=== PATIENT | male | born 1955 | race Caucasian/White ===

== ENCOUNTER 2017-09-14 16:42 | Inpatient (IN) | payer MEDICAID ==
[~2017-09-14] VITALS: Ht 180.3 cm; Wt 121.0 kg
[~2017-09-14 16:42] MED LIST: ASPI81TA52 PO; ATOR10TA87 PO; CHOL10002 PO; EFF25T PO; FENO160T PO; FLUT1DIS4 INH; GLYB5TAB7 PO; INSU100V36 SQ; LANTUS SQ; LISI40TA4 PO; MAGN250T11 PO; METF10002 PO; METO25TA6 PO; NITR0.4T51 SL; OMEG1CAP2 PO; OMEP-50 PO; POTA99TA25 PO; SAXA5TAB PO; TICA90TA PO; TRIA1TAB5 PO; VITA150T PO
[2017-09-14] MEDS ORDERED: aspirin 81mg tab.chew PO ONE (16:50)
[2017-09-14] MEDS: nitroGLYCERIN 0.4mg SUBLingual tab SL PRN (16:58)
[2017-09-14] MEDS ORDERED: heparin 10,000 units/1 ML INJ IV ONE (17:15)
[2017-09-14] MEDS ORDERED: heparin 10,000 units/1 ML INJ IV PRN (17:15)
[2017-09-14 17:32] LABS: BASOPHILS # (AUTO) 0.1 X10'3 (0-0.2); BASOPHILS % (AUTO) 0.6 % (0-1); EOSINOPHILS % (AUTO) 0.1 % (0-6); HEMATOCRIT 42.6 % (42.0-52.0); HEMOGLOBIN 14.7 g/dl (14.0-17.9); LYMPHOCYTES # (AUTO) 1.1 X10'3 (1.1-4.8); LYMPHOCYTES % (AUTO) 10.8 % (21-51); MEAN CORPUSCULAR HEMOGLOBIN 31.2 PG (27.0-31.0); MEAN CORPUSCULAR HGB CONC 34.6 % (33.0-36.5); MEAN CORPUSCULAR VOLUME 90.3 FL (78-98); MEAN PLATELET VOLUME 8.8 FL (7.4-10.4); MONOCYTES # (AUTO) 0.7 X10'3 (0-0.9); MONOCYTES % (AUTO) 6.9 % (2-12); NEUTROPHILS # (AUTO) 8.6 X10'3 (1.8-7.7); NEUTROPHILS % (AUTO) 81.6 % (42-75); PLATELET COUNT 214 X10'3 (140-440); RED BLOOD COUNT 4.72 X10'6 (4.70-6.10); RED CELL DISTRIBUTION WIDTH 13.2 % (11.5-14.5); WHITE BLOOD COUNT 10.5 X10'3 (4.5-11.0)
[2017-09-14] MEDS ORDERED: LANTUS SQ (17:34)
[2017-09-14] MEDS ORDERED: DULO-31 PO (17:34)
[2017-09-14] MEDS ORDERED: FURO-150 PO (17:34)
[2017-09-14] MEDS ORDERED: GABA-530 PO ×2 (17:34)
[2017-09-14] MEDS ORDERED: CARV-50 PO (17:34)
[2017-09-14] MEDS ORDERED: ATOR40TA PO (17:34)
[2017-09-14] MEDS ORDERED: PRAZ5CAP PO (17:34)
[2017-09-14] MEDS ORDERED: POTA10TA19 PO (17:34)
[2017-09-14] MEDS ORDERED: LEVO750T21 PO (17:36)
[2017-09-14 17:46] LABS: PARTIAL THROMBOPLASTIN TIME 41 SECONDS (22-32); PROTHROMBIN TIME 10.7 SECONDS (9.0-12.0)
[2017-09-14] MEDS ORDERED: venlafaxine 37.5mg tablet PO PRN (17:50)
[2017-09-14 17:52] LABS: ALANINE AMINOTRANSFERASE 26 U/L (12-78); ALBUMIN 2.6 G/DL (3.4-5.0); ALBUMIN/GLOBULIN RATIO 0.8 (1.1-1.5); ALKALINE PHOSPHATASE 64 IU/L (46-116); ANION GAP 11 (8-16); ASPARTATE AMINO TRANSFERASE 51 U/L (10-37); BILIRUBIN,TOTAL 0.9 MG/DL (0.1-1.0); BLOOD UREA NITROGEN 17 MG/DL (7-18); BUN/CREATININE RATIO 17.5 (5.4-32.0); CHLORIDE 107 MMOL/L (99-107); CREATININE 0.97 MG/DL (0.60-1.10); GLUCOSE 253 MG/DL (70-104); POTASSIUM 3.9 MMOL/L (3.5-5.1); SODIUM 142 MMOL/L (135-145); TOTAL CARBON DIOXIDE 23.6 MMOL/L (24-32); TOTAL PROTEIN 5.9 G/DL (6.4-8.2); eGFR 79 ML/MIN
[2017-09-14] MEDS: normal saline 1000ml 1,000 ML IV SCH (17:53)
[2017-09-14] MEDS ORDERED: nitroGLYCERIN-Tridil 50MG/D5W 250 ML IV PRN (17:53)
[2017-09-14] MEDS ORDERED: diphenhydrAMINE 25mg capsule PO PRN (17:55)
[2017-09-14] MEDS ORDERED: diphenhydrAMINE 50 mg/ml inj IV PRN (17:55)
[2017-09-14] MEDS ORDERED: mag hydrox/Alum hydrox/simeth 30ml oral suspension PO PRN (17:55)
[2017-09-14] MEDS ORDERED: acetaminophen 650mg rectal suppository RC PRN (17:55)
[2017-09-14] MEDS ORDERED: ondansetron/PF 4mg/2ml inj IV PRN (17:55)
[2017-09-14] MEDS ORDERED: magnesium hydroxide 30ml (MOM) UD suspension PO PRN (17:55)
[2017-09-14] MEDS ORDERED: HYDROmorphone inj. 0.5 MG/0.5 ML DISP.SYRIN IV PRN ×2 (17:55)
[2017-09-14] MEDS ORDERED: normal saline 1000ML IV soln IVB ONE (17:55)
[2017-09-14] MEDS ORDERED: morphine 5 MG/ML injection IV PRN (17:55)
[2017-09-14] MEDS ORDERED: morphine 2 MG/ML inj. syringe IV ONE (17:55)
[2017-09-14] MEDS ORDERED: acetaminophen 325mg tablet PO PRN (17:55)
[2017-09-14] MEDS ORDERED: metoclopramide 5 mg/ml inj IV PRN (17:55)
[2017-09-14] MEDS: morphine 5 MG/ML injection IV PRN (18:33)
[2017-09-14] MEDS ORDERED: iohexol 350MG/ML 100ml bottle IV ONE (18:53)
[2017-09-14 19:00] VITALS: BP 115/71
[2017-09-14] MEDS ORDERED: MESSAGE TO PHARMACY PO ONE (19:00)
[2017-09-14] MEDS ORDERED: glucagon, human recombinant 1mg kit SUBCUT PRN (19:00)
[2017-09-14] MEDS ORDERED: dextrose 50%-water 50ml dispensing syringe IV PRN ×2 (19:00)
[2017-09-14] MEDS ORDERED: dextrose ORAL solution 15 GM/59 ML bottle PO PRN ×2 (19:00)
[2017-09-14 19:07] LABS: CLARITY,URINE CLEAR (Clear); COLOR,URINE YELLOW (Yellow); GLUCOSE, URINE >=1000 mg/dl (Neg); KETONES,URINE NEGATIVE (Neg); LEUKOCYTE ESTERASE ,URINE NEGATIVE (Neg); NITRITES, URINE NEGATIVE (Neg); OCCULT BLOOD,URINE NEGATIVE (Neg); PH,URINE 5.5 (4.8-8.0); PROTEIN,URINE NEGATIVE (Neg)
[2017-09-14 19:09] LABS: UA COLLECTION TYPE CLN CATCH MIDSTREAM
[2017-09-14 19:16] LABS: BACTERIA,URINE NONE SEEN /HPF (Neg); MUCUS STRANDS FEW /LPF (Neg); RBC,URINE NONE SEEN /HPF (0-2); SQUAMOUS EPITHELIAL CELL,UR FEW /LPF (FEW); WBC,URINE 0-4 /HPF (0-4)
[2017-09-14] MEDS ORDERED: ticagrelor 90mg tablet PO SCH (20:00)
[2017-09-14] MEDS ORDERED: methylPREDNISolone sod succ 125mg/2ml vial IV ONE (20:00)
[2017-09-14] MEDS: glimepiride 1 MG tablet PO SCH (20:00)
[2017-09-14 20:39] LABS: MAGNESIUM 1.5 MG/DL (1.5-2.4)
[2017-09-14 20:42] LABS: HEMOGLOBIN A1C 7.9 % (4.5-6.2)
[2017-09-14] MEDS: prazosin 1mg capsule PO SCH (21:00)
[2017-09-14] MEDS ORDERED: temazepam 15mg capsule PO PRN (21:00)
[2017-09-14] MEDS ORDERED: nitroGLYCERIN-Tridil 50MG/D5W 250 ML IV SCH (21:05)
[2017-09-14] MEDS: gabapentin 100mg capsule PO SCH (21:50)
[2017-09-14] MEDS: docusate sod 100mg capsule PO SCH (21:50)
[2017-09-14] MEDS: azithromycin 250mg tablet PO SCH (21:51)
[2017-09-14] MEDS: carVEDilol 12.5mg tablet PO SCH (21:51)
[2017-09-14 23:00] VITALS: BP 116/76
[2017-09-15] VITALS (16 sets, daily range): BP systolic 98–131; BP diastolic 53–81
[2017-09-15] MEDS: tirofiban 5mg in NS 100mL 100 ML IV SCH ×5 (00:33→19:35)
[2017-09-15] MEDS: heparin 10,000 units/1 ML INJ IV PRN ×2 (00:55→07:54)
[2017-09-15] MEDS: normal saline 1000ml 1,000 ML IV SCH ×3 (03:53→16:11)
[2017-09-15] MEDS: morphine 5 MG/ML injection IV PRN (05:14)
[2017-09-15 05:28] LABS: BASOPHILS % (AUTO) 0 % (0-1); EOSINOPHILS # (AUTO) 0.1 X10'3 (0-0.9); EOSINOPHILS % (AUTO) 0.7 % (0-6); HEMATOCRIT 39.5 % (42.0-52.0); HEMOGLOBIN 14.1 g/dl (14.0-17.9); LYMPHOCYTES # (AUTO) 0.6 X10'3 (1.1-4.8); LYMPHOCYTES % (AUTO) 6.1 % (21-51); MEAN CORPUSCULAR HEMOGLOBIN 31.7 PG (27.0-31.0); MEAN CORPUSCULAR HGB CONC 35.6 % (33.0-36.5); MEAN CORPUSCULAR VOLUME 88.8 FL (78-98); MEAN PLATELET VOLUME 8.1 FL (7.4-10.4); MONOCYTES # (AUTO) 0.1 X10'3 (0-0.9); MONOCYTES % (AUTO) 1.3 % (2-12); NEUTROPHILS # (AUTO) 9.8 X10'3 (1.8-7.7); NEUTROPHILS % (AUTO) 91.9 % (42-75); PLATELET COUNT 253 X10'3 (140-440); RED BLOOD COUNT 4.45 X10'6 (4.70-6.10); RED CELL DISTRIBUTION WIDTH 13.3 % (11.5-14.5); WHITE BLOOD COUNT 10.6 X10'3 (4.5-11.0)
[2017-09-15 05:50] LABS: ALANINE AMINOTRANSFERASE 28 U/L (12-78); ALBUMIN 2.5 G/DL (3.4-5.0); ALBUMIN/GLOBULIN RATIO 0.8 (1.1-1.5); ALKALINE PHOSPHATASE 60 IU/L (46-116); ANION GAP 12 (8-16); ASPARTATE AMINO TRANSFERASE 45 U/L (10-37); BLOOD UREA NITROGEN 23 MG/DL (7-18); BUN/CREATININE RATIO 23.5 (5.4-32.0); CALCIUM 8.3 MG/DL (8.5-10.1); CHLORIDE 104 MMOL/L (99-107); CREATININE 0.98 MG/DL (0.60-1.10); GLUCOSE 291 MG/DL (70-104); POTASSIUM 4.2 MMOL/L (3.5-5.1); SODIUM 139 MMOL/L (135-145); TOTAL CARBON DIOXIDE 22.8 MMOL/L (24-32); TOTAL PROTEIN 5.8 G/DL (6.4-8.2); eGFR 78 ML/MIN
[2017-09-15] MEDS: azithromycin 250mg tablet PO SCH ×2 (07:51→19:21)
[2017-09-15] MEDS: duloxetine 30mg CAPSULE.DR PO SCH (07:51)
[2017-09-15] MEDS: aspirin 81mg tablet.DR PO SCH (07:51)
[2017-09-15] MEDS: docusate sod 100mg capsule PO SCH ×2 (07:51→19:21)
[2017-09-15] MEDS: fenofibrate 145mg tablet PO SCH (07:51)
[2017-09-15] MEDS: carVEDilol 12.5mg tablet PO SCH ×2 (07:52→19:21)
[2017-09-15] MEDS: pantoprazole 40mg Tablet.DR PO SCH (07:52)
[2017-09-15] MEDS: gabapentin 100mg capsule PO SCH ×2 (07:52→21:01)
[2017-09-15] MEDS: atorvastatin 20mg tablet PO SCH (07:57)
[2017-09-15] MEDS ORDERED: CefTRIAXone 1 gm/50ml D5W ADV 50 ML IV SCH (08:00)
[2017-09-15] MEDS: glimepiride 1 MG tablet PO SCH (08:00)
[2017-09-15] MEDS: insulin Lispro (HumaLOG) vial - multi-dose SQ SCH ×3 (08:12→19:29)
[2017-09-15 08:48] LABS: CHOL/HDL RATIO 4.4 (0.00-4.99); CHOLESTEROL 127 MG/DL (0-200); HDL CHOLESTEROL 29 MG/DL (35-60); LDL CHOLESTEROL 83 MG/DL (50-100); TRIGLYCERIDES 123 MG/DL (20-135)
[2017-09-15] MEDS: [UNRECOGNIZED DRUG - REMARK] PO NR (10:13)
[2017-09-15] MEDS ORDERED: CARV-50 (10:25)
[2017-09-15] MEDS ORDERED: LIDOcaine 1%/PF (10mg/ml) 5ml vial ONE (11:59)
[2017-09-15] MEDS ORDERED: fentaNYL/PF 50MCG/1 ML 2ML syringe ONE (11:59)
[2017-09-15] MEDS ORDERED: midazolam 2 mg/2 ml injection ONE (11:59)
[2017-09-15] MEDS ORDERED: iohexol 350MG/ML 100ml bottle IV ONE ×2 (12:00→12:55)
[2017-09-15] MEDS ORDERED: heparin 1,000unit/ml 10ml vial 0 ML ONE (13:06)
[2017-09-15] MEDS ORDERED: proCHLORperazine 10 MG/2 ml inj IV PRN (14:55)
[2017-09-15] MEDS ORDERED: OXAZEpam 15mg capsule PO PRN (14:55)
[2017-09-15] MEDS: HYDROcodone/acetaminophen 10/325mg tab PO PRN (15:25)
[2017-09-15] MEDS ORDERED: morphine 4 MG/ML inj SYRINge IV PRN ×2 (20:47)
[2017-09-15] MEDS: prazosin 1mg capsule PO SCH (21:02)
[2017-09-15] MEDS ORDERED: LORazepam 2 mg/ml vial IV ONE (22:00)
[2017-09-15 23:41] LABS: BASOPHILS # (AUTO) 0.1 X10'3 (0-0.2); EOSINOPHILS % (AUTO) 0 % (0-6); HEMATOCRIT 36.5 % (42.0-52.0); HEMOGLOBIN 12.9 g/dl (14.0-17.9); LYMPHOCYTES # (AUTO) 0.9 X10'3 (1.1-4.8); LYMPHOCYTES % (AUTO) 7.3 % (21-51); MEAN CORPUSCULAR HEMOGLOBIN 31.3 PG (27.0-31.0); MEAN CORPUSCULAR HGB CONC 35.5 % (33.0-36.5); MEAN CORPUSCULAR VOLUME 88.2 FL (78-98); MEAN PLATELET VOLUME 8.1 FL (7.4-10.4); MONOCYTES # (AUTO) 0.9 X10'3 (0-0.9); MONOCYTES % (AUTO) 7.2 % (2-12); NEUTROPHILS # (AUTO) 10.9 X10'3 (1.8-7.7); NEUTROPHILS % (AUTO) 84.5 % (42-75); PLATELET COUNT 275 X10'3 (140-440); RED BLOOD COUNT 4.13 X10'6 (4.70-6.10); RED CELL DISTRIBUTION WIDTH 13.1 % (11.5-14.5); WHITE BLOOD COUNT 12.9 X10'3 (4.5-11.0)
[2017-09-16] VITALS (12 sets, daily range): BP systolic 120–171; BP diastolic 48–116
[2017-09-16 05:55] LABS: BASOPHILS % (AUTO) 0.3 % (0-1); EOSINOPHILS # (AUTO) 0.1 X10'3 (0-0.9); EOSINOPHILS % (AUTO) 1.3 % (0-6); HEMATOCRIT 35.4 % (42.0-52.0); HEMOGLOBIN 12.4 g/dl (14.0-17.9); LYMPHOCYTES # (AUTO) 1.1 X10'3 (1.1-4.8); LYMPHOCYTES % (AUTO) 10.4 % (21-51); MEAN CORPUSCULAR HEMOGLOBIN 31.7 PG (27.0-31.0); MEAN CORPUSCULAR HGB CONC 35.2 % (33.0-36.5); MEAN PLATELET VOLUME 8.2 FL (7.4-10.4); MONOCYTES # (AUTO) 0.8 X10'3 (0-0.9); MONOCYTES % (AUTO) 7.8 % (2-12); NEUTROPHILS # (AUTO) 8.5 X10'3 (1.8-7.7); NEUTROPHILS % (AUTO) 80.2 % (42-75); PLATELET COUNT 242 X10'3 (140-440); RED BLOOD COUNT 3.93 X10'6 (4.70-6.10); RED CELL DISTRIBUTION WIDTH 13.3 % (11.5-14.5); WHITE BLOOD COUNT 10.6 X10'3 (4.5-11.0)
[2017-09-16 06:04] LABS: ALANINE AMINOTRANSFERASE 26 U/L (12-78); ALBUMIN 2.3 G/DL (3.4-5.0); ALBUMIN/GLOBULIN RATIO 0.7 (1.1-1.5); ALKALINE PHOSPHATASE 54 IU/L (46-116); ANION GAP 12 (8-16); ASPARTATE AMINO TRANSFERASE 32 U/L (10-37); BILIRUBIN,TOTAL 0.7 MG/DL (0.1-1.0); BLOOD UREA NITROGEN 27 MG/DL (7-18); BUN/CREATININE RATIO 28.1 (5.4-32.0); CALCIUM 8.1 MG/DL (8.5-10.1); CHLORIDE 104 MMOL/L (99-107); CREATININE 0.96 MG/DL (0.60-1.10); GLUCOSE 256 MG/DL (70-104); POTASSIUM 3.7 MMOL/L (3.5-5.1); SODIUM 140 MMOL/L (135-145); TOTAL PROTEIN 5.5 G/DL (6.4-8.2); eGFR 80 ML/MIN
[2017-09-16] MEDS ORDERED: potassium Cl 20 mEq SR tablet PO STA (06:34)
[2017-09-16] MEDS ORDERED: furosemide 40mg/4ml inj IV ONE ×2 (06:35→20:40)
[2017-09-16] MEDS: atorvastatin 20mg tablet PO SCH (07:56)
[2017-09-16] MEDS: duloxetine 30mg CAPSULE.DR PO SCH (07:57)
[2017-09-16] MEDS: azithromycin 250mg tablet PO SCH ×2 (07:57→21:22)
[2017-09-16] MEDS: aspirin 81mg tablet.DR PO SCH (07:58)
[2017-09-16] MEDS: losartan 25mg tablet PO SCH (07:58)
[2017-09-16] MEDS: fenofibrate 145mg tablet PO SCH (07:58)
[2017-09-16] MEDS: docusate sod 100mg capsule PO SCH ×2 (07:58→21:22)
[2017-09-16] MEDS: gabapentin 100mg capsule PO SCH ×2 (07:58→21:25)
[2017-09-16] MEDS: pantoprazole 40mg Tablet.DR PO SCH (07:58)
[2017-09-16] MEDS: isosorbide mononitrate 30mg tab.SR.24H PO SCH (07:59)
[2017-09-16] MEDS: carVEDilol 12.5mg tablet PO SCH ×2 (07:59→21:25)
[2017-09-16] MEDS: nitroGLYCERIN 0.4mg SUBLingual tab SL PRN (08:02)
[2017-09-16] MEDS: cefTRIAXone 1g/NS 100ml IVPB 100 ML IV SCH (08:05)
[2017-09-16] MEDS: insulin Lispro (HumaLOG) vial - multi-dose SQ SCH ×2 (08:53→21:37)
[2017-09-16] MEDS ORDERED: furosemide 40mg/4ml inj ONE (09:09)
[2017-09-16] MEDS ORDERED: furosemide 20 MG/2 ML vial IV STA (09:13)
[2017-09-16] MEDS ORDERED: metoprolol tartrate 1mg/ml inj IV ONE ×3 (09:15→14:25)
[2017-09-16 09:21] LABS: ABG BASE EXCESS -1.2 mmol/L (-2.0-3.0); ABG HCO3 21.7 mmol/L (22.0-26.0); ABG PH (T) 7.462 (7.350-7.450); ABG PO2 (T) 70.8 mmHg (83-108); ALLEN'S TEST Positive; FCOHb 0.3 % (0.5-1.5); FLOW 4 L/min; FMetHb 0.3 % (0.3-1.12); FO2Hb 94.4 % (94-100); TOTAL HEMOGLOBIN 13.9 G/dl (14.0-18.0)
[2017-09-16 09:23] LABS: BASOPHILS # (AUTO) 0.1 X10'3 (0-0.2); BASOPHILS % (AUTO) 1.1 % (0-1); EOSINOPHILS # (AUTO) 0.1 X10'3 (0-0.9); EOSINOPHILS % (AUTO) 0.7 % (0-6); HEMATOCRIT 37.5 % (42.0-52.0); HEMOGLOBIN 13.4 g/dl (14.0-17.9); LYMPHOCYTES # (AUTO) 0.8 X10'3 (1.1-4.8); LYMPHOCYTES % (AUTO) 7.1 % (21-51); MEAN CORPUSCULAR HEMOGLOBIN 31.9 PG (27.0-31.0); MEAN CORPUSCULAR HGB CONC 35.9 % (33.0-36.5); MEAN CORPUSCULAR VOLUME 88.8 FL (78-98); MEAN PLATELET VOLUME 7.6 FL (7.4-10.4); MONOCYTES # (AUTO) 0.8 X10'3 (0-0.9); NEUTROPHILS # (AUTO) 9.7 X10'3 (1.8-7.7); NEUTROPHILS % (AUTO) 84.1 % (42-75); PLATELET COUNT 269 X10'3 (140-440); RED BLOOD COUNT 4.22 X10'6 (4.70-6.10); RED CELL DISTRIBUTION WIDTH 13.1 % (11.5-14.5); WHITE BLOOD COUNT 11.6 X10'3 (4.5-11.0)
[2017-09-16 09:34] LABS: PROTHROMBIN TIME 10.5 SECONDS (9.0-12.0)
[2017-09-16 09:42] LABS: ALANINE AMINOTRANSFERASE 21 U/L (12-78); ALBUMIN 2.6 G/DL (3.4-5.0); ALBUMIN/GLOBULIN RATIO 0.7 (1.1-1.5); ALKALINE PHOSPHATASE 63 IU/L (46-116); ANION GAP 13 (8-16); ASPARTATE AMINO TRANSFERASE 33 U/L (10-37); BILIRUBIN,TOTAL 0.8 MG/DL (0.1-1.0); BLOOD UREA NITROGEN 22 MG/DL (7-18); BUN/CREATININE RATIO 24.2 (5.4-32.0); CALCIUM 8.2 MG/DL (8.5-10.1); CHLORIDE 103 MMOL/L (99-107); CREATININE 0.91 MG/DL (0.60-1.10); GLUCOSE 261 MG/DL (70-104); POTASSIUM 3.6 MMOL/L (3.5-5.1); SODIUM 140 MMOL/L (135-145); TOTAL CARBON DIOXIDE 23.7 MMOL/L (24-32); TOTAL PROTEIN 6.3 G/DL (6.4-8.2); eGFR 85 ML/MIN
[2017-09-16 09:44] LABS: TROPONIN I 5.73 NG/ML (0.0-0.05)
[2017-09-16] MEDS: normal saline 1000ml 1,000 ML IV SCH (09:53)
[2017-09-16] MEDS: [UNRECOGNIZED DRUG - REMARK] PO NR (10:00)
[2017-09-16] MEDS ORDERED: amiodarone 150mg/dext, iso-os 100 ML IV ONE (15:15)
[2017-09-16] MEDS: amiodarone/D5 360MG/200ML BAG 200 ML IV SCH ×2 (16:46→22:47)
[2017-09-16] MEDS: lactobacillus rhamnosus 10,000 MMU CELLS/CAPSULE PO SCH (16:51)
[2017-09-16] MEDS ORDERED: albuterol 2.5 MG/3 ML nebule NEB PRN (20:40)
[2017-09-16] MEDS: prazosin 1mg capsule PO SCH (21:22)
[2017-09-17 05:30] VITALS: BP 121/72
[2017-09-17 05:58] LABS: BASOPHILS % (AUTO) 0.1 % (0-1); EOSINOPHILS # (AUTO) 0.2 X10'3 (0-0.9); EOSINOPHILS % (AUTO) 1.7 % (0-6); HEMATOCRIT 36.8 % (42.0-52.0); HEMOGLOBIN 13.1 g/dl (14.0-17.9); LYMPHOCYTES # (AUTO) 1.2 X10'3 (1.1-4.8); LYMPHOCYTES % (AUTO) 13.7 % (21-51); MEAN CORPUSCULAR HEMOGLOBIN 31.7 PG (27.0-31.0); MEAN CORPUSCULAR HGB CONC 35.5 % (33.0-36.5); MEAN CORPUSCULAR VOLUME 89.4 FL (78-98); MONOCYTES # (AUTO) 0.9 X10'3 (0-0.9); MONOCYTES % (AUTO) 9.8 % (2-12); NEUTROPHILS # (AUTO) 6.7 X10'3 (1.8-7.7); NEUTROPHILS % (AUTO) 74.7 % (42-75); PLATELET COUNT 247 X10'3 (140-440); RED BLOOD COUNT 4.12 X10'6 (4.70-6.10); RED CELL DISTRIBUTION WIDTH 12.8 % (11.5-14.5); WHITE BLOOD COUNT 8.9 X10'3 (4.5-11.0)
[2017-09-17 06:38] LABS: ALANINE AMINOTRANSFERASE 27 U/L (12-78); ALBUMIN 2.4 G/DL (3.4-5.0); ALBUMIN/GLOBULIN RATIO 0.7 (1.1-1.5); ALKALINE PHOSPHATASE 58 IU/L (46-116); ANION GAP 10 (8-16); ASPARTATE AMINO TRANSFERASE 35 U/L (10-37); BILIRUBIN,TOTAL 0.7 MG/DL (0.1-1.0); BLOOD UREA NITROGEN 21 MG/DL (7-18); BUN/CREATININE RATIO 22.3 (5.4-32.0); CALCIUM 8.2 MG/DL (8.5-10.1); CHLORIDE 104 MMOL/L (99-107); CREATININE 0.94 MG/DL (0.60-1.10); GLUCOSE 251 MG/DL (70-104); POTASSIUM 3.3 MMOL/L (3.5-5.1); SODIUM 142 MMOL/L (135-145); TOTAL CARBON DIOXIDE 27.6 MMOL/L (24-32); TOTAL PROTEIN 5.9 G/DL (6.4-8.2); eGFR 82 ML/MIN
[2017-09-17] MEDS ORDERED: potassium Cl 20 mEq SR tablet PO STA (07:38)
[2017-09-17] MEDS ORDERED: potassium Cl 20 mEq SR tablet PO PRN ×2 (07:40)
[2017-09-17] MEDS ORDERED: potassium Cl 40MEQ/NS 500ml 500 ML IV PRN ×2 (07:40)
[2017-09-17] MEDS ORDERED: magnesium Cl slow-release 64mg tablet PO PRN (07:40)
[2017-09-17] MEDS: amiodarone 200mg tablet PO SCH ×3 (08:00→19:52)
[2017-09-17] MEDS: lactobacillus rhamnosus 10,000 MMU CELLS/CAPSULE PO SCH ×2 (09:28→17:24)
[2017-09-17] MEDS: pantoprazole 40mg Tablet.DR PO SCH (09:29)
[2017-09-17] MEDS: docusate sod 100mg capsule PO SCH ×2 (09:29→19:52)
[2017-09-17] MEDS: fenofibrate 145mg tablet PO SCH (09:29)
[2017-09-17] MEDS: losartan 25mg tablet PO SCH (09:29)
[2017-09-17] MEDS: carVEDilol 12.5mg tablet PO SCH ×2 (09:30→19:53)
[2017-09-17] MEDS: aspirin 81mg tablet.DR PO SCH (09:30)
[2017-09-17] MEDS: azithromycin 250mg tablet PO SCH ×2 (09:30→19:53)
[2017-09-17] MEDS: gabapentin 100mg capsule PO SCH ×2 (09:30→21:50)
[2017-09-17] MEDS: duloxetine 30mg CAPSULE.DR PO SCH (09:30)
[2017-09-17] MEDS: atorvastatin 20mg tablet PO SCH (09:30)
[2017-09-17] MEDS: isosorbide mononitrate 30mg tab.SR.24H PO SCH (09:30)
[2017-09-17] MEDS: insulin Lispro (HumaLOG) vial - multi-dose SQ SCH ×3 (09:39→18:55)
[2017-09-17] MEDS: cefTRIAXone 1g/NS 100ml IVPB 100 ML IV SCH (10:27)
[2017-09-17 11:00] VITALS: BP 132/79
[2017-09-17] MEDS: HYDROcodone/acetaminophen 5mg/325mg tablet PO PRN ×2 (13:28→22:04)
[2017-09-17 15:00] VITALS: BP 113/72
[2017-09-17 19:00] VITALS: BP 137/90
[2017-09-17] MEDS: prazosin 1mg capsule PO SCH (21:50)
[2017-09-17] MEDS: insulin glargine (Lantus) pen - multi-dose SQ SCH (21:55)
[2017-09-17 23:00] VITALS: BP 119/78
[2017-09-18 03:00] VITALS: BP 108/65
[2017-09-18 06:00] VITALS: BP 127/85
[2017-09-18 06:31] LABS: BASOPHILS # (AUTO) 0.1 X10'3 (0-0.2); BASOPHILS % (AUTO) 0.8 % (0-1); EOSINOPHILS # (AUTO) 0.3 X10'3 (0-0.9); EOSINOPHILS % (AUTO) 3.7 % (0-6); HEMATOCRIT 36.7 % (42.0-52.0); HEMOGLOBIN 12.9 g/dl (14.0-17.9); LYMPHOCYTES # (AUTO) 1.3 X10'3 (1.1-4.8); LYMPHOCYTES % (AUTO) 16.3 % (21-51); MEAN CORPUSCULAR HEMOGLOBIN 31.3 PG (27.0-31.0); MEAN CORPUSCULAR HGB CONC 35.1 % (33.0-36.5); MEAN CORPUSCULAR VOLUME 89.3 FL (78-98); MONOCYTES # (AUTO) 0.7 X10'3 (0-0.9); MONOCYTES % (AUTO) 9.4 % (2-12); NEUTROPHILS # (AUTO) 5.4 X10'3 (1.8-7.7); NEUTROPHILS % (AUTO) 69.8 % (42-75); PLATELET COUNT 265 X10'3 (140-440); RED BLOOD COUNT 4.11 X10'6 (4.70-6.10); RED CELL DISTRIBUTION WIDTH 13.1 % (11.5-14.5); WHITE BLOOD COUNT 7.8 X10'3 (4.5-11.0)
[2017-09-18 06:48] LABS: ALANINE AMINOTRANSFERASE 35 U/L (12-78); ALBUMIN 2.3 G/DL (3.4-5.0); ALBUMIN/GLOBULIN RATIO 0.7 (1.1-1.5); ALKALINE PHOSPHATASE 56 IU/L (46-116); ANION GAP 12 (8-16); ASPARTATE AMINO TRANSFERASE 32 U/L (10-37); BILIRUBIN,TOTAL 0.7 MG/DL (0.1-1.0); BLOOD UREA NITROGEN 26 MG/DL (7-18); BUN/CREATININE RATIO 25.2 (5.4-32.0); CALCIUM 8.4 MG/DL (8.5-10.1); CHLORIDE 106 MMOL/L (99-107); CREATININE 1.03 MG/DL (0.60-1.10); GLUCOSE 206 MG/DL (70-104); MAGNESIUM 1.8 MG/DL (1.5-2.4); POTASSIUM 3.8 MMOL/L (3.5-5.1); SODIUM 143 MMOL/L (135-145); TOTAL CARBON DIOXIDE 25.5 MMOL/L (24-32); TOTAL PROTEIN 5.7 G/DL (6.4-8.2); eGFR 74 ML/MIN
[2017-09-18] MEDS: cefTRIAXone 1g/NS 100ml IVPB 100 ML IV SCH (08:51)
[2017-09-18] MEDS: HYDROcodone/acetaminophen 10/325mg tab PO PRN ×2 (09:00→20:37)
[2017-09-18] MEDS: azithromycin 250mg tablet PO SCH ×2 (09:00→20:38)
[2017-09-18] MEDS: isosorbide mononitrate 30mg tab.SR.24H PO SCH (09:01)
[2017-09-18] MEDS: lactobacillus rhamnosus 10,000 MMU CELLS/CAPSULE PO SCH ×2 (09:01→17:40)
[2017-09-18] MEDS: amiodarone 200mg tablet PO SCH ×2 (09:01→20:38)
[2017-09-18] MEDS: atorvastatin 20mg tablet PO SCH (09:01)
[2017-09-18] MEDS: gabapentin 100mg capsule PO SCH ×2 (09:01→20:37)
[2017-09-18] MEDS: docusate sod 100mg capsule PO SCH ×2 (09:01→20:38)
[2017-09-18] MEDS: losartan 25mg tablet PO SCH (09:01)
[2017-09-18] MEDS: duloxetine 30mg CAPSULE.DR PO SCH (09:01)
[2017-09-18] MEDS: aspirin 81mg tablet.DR PO SCH (09:01)
[2017-09-18] MEDS: fenofibrate 145mg tablet PO SCH (09:01)
[2017-09-18] MEDS: carVEDilol 12.5mg tablet PO SCH ×2 (09:01→20:38)
[2017-09-18] MEDS: pantoprazole 40mg Tablet.DR PO SCH (09:02)
[2017-09-18] MEDS: insulin Lispro (HumaLOG) vial - multi-dose SQ SCH ×3 (09:09→18:56)
[2017-09-18 11:00] VITALS: BP 108/71
[2017-09-18 14:15] LABS: RHEUM FACTOR QUAL REFLEX TITER NEGATIVE (Neg)
[2017-09-18 15:00] VITALS: BP 103/68
[2017-09-18 15:02] LABS: CRP-CARDIAC RISK > 90.000 MG/L
[2017-09-18 19:00] VITALS: BP 125/69
[2017-09-18] MEDS: prazosin 1mg capsule PO SCH (20:38)
[2017-09-18] MEDS: insulin glargine (Lantus) pen - multi-dose SQ SCH (20:50)
[2017-09-18] MEDS ORDERED: insulin glargine (Lantus) pen - multi-dose SQ SCH (21:00)
[2017-09-18 23:00] VITALS: BP 105/66
[2017-09-19 03:00] VITALS: BP 124/76
[2017-09-19 06:00] VITALS: BP 130/82
[2017-09-19 07:27] LABS: BASOPHILS # (AUTO) 0.2 X10'3 (0-0.2); EOSINOPHILS # (AUTO) 0.4 X10'3 (0-0.9); EOSINOPHILS % (AUTO) 4.6 % (0-6); HEMATOCRIT 38.2 % (42.0-52.0); HEMOGLOBIN 13.3 g/dl (14.0-17.9); LYMPHOCYTES # (AUTO) 1.2 X10'3 (1.1-4.8); LYMPHOCYTES % (AUTO) 14.9 % (21-51); MEAN CORPUSCULAR HEMOGLOBIN 31.4 PG (27.0-31.0); MEAN CORPUSCULAR HGB CONC 34.8 % (33.0-36.5); MEAN CORPUSCULAR VOLUME 90.4 FL (78-98); MONOCYTES # (AUTO) 0.7 X10'3 (0-0.9); MONOCYTES % (AUTO) 9.4 % (2-12); NEUTROPHILS # (AUTO) 5.5 X10'3 (1.8-7.7); NEUTROPHILS % (AUTO) 69.1 % (42-75); PLATELET COUNT 278 X10'3 (140-440); RED BLOOD COUNT 4.23 X10'6 (4.70-6.10); WHITE BLOOD COUNT 7.9 X10'3 (4.5-11.0)
[2017-09-19 07:40] LABS: ALANINE AMINOTRANSFERASE 33 U/L (12-78); ALBUMIN 2.2 G/DL (3.4-5.0); ALBUMIN/GLOBULIN RATIO 0.6 (1.1-1.5); ALKALINE PHOSPHATASE 53 IU/L (46-116); ANION GAP 9 (8-16); ASPARTATE AMINO TRANSFERASE 26 U/L (10-37); BILIRUBIN,TOTAL 0.6 MG/DL (0.1-1.0); BLOOD UREA NITROGEN 20 MG/DL (7-18); BUN/CREATININE RATIO 23.5 (5.4-32.0); CALCIUM 8.3 MG/DL (8.5-10.1); CHLORIDE 106 MMOL/L (99-107); CREATININE 0.85 MG/DL (0.60-1.10); GLUCOSE 204 MG/DL (70-104); MAGNESIUM 1.9 MG/DL (1.5-2.4); POTASSIUM 3.5 MMOL/L (3.5-5.1); SODIUM 141 MMOL/L (135-145); TOTAL CARBON DIOXIDE 26.2 MMOL/L (24-32); TOTAL PROTEIN 5.6 G/DL (6.4-8.2); eGFR > 90 ML/MIN
[2017-09-19] MEDS: cefTRIAXone 1g/NS 100ml IVPB 100 ML IV SCH (09:27)
[2017-09-19] MEDS: carVEDilol 12.5mg tablet PO SCH ×2 (09:32→19:44)
[2017-09-19] MEDS: isosorbide mononitrate 30mg tab.SR.24H PO SCH (09:32)
[2017-09-19] MEDS: HYDROcodone/acetaminophen 10/325mg tab PO PRN ×2 (09:32→19:44)
[2017-09-19] MEDS: losartan 25mg tablet PO SCH (09:32)
[2017-09-19] MEDS: atorvastatin 20mg tablet PO SCH (09:32)
[2017-09-19] MEDS: pantoprazole 40mg Tablet.DR PO SCH (09:32)
[2017-09-19] MEDS: amiodarone 200mg tablet PO SCH ×2 (09:33→19:43)
[2017-09-19] MEDS: gabapentin 100mg capsule PO SCH ×2 (09:33→20:57)
[2017-09-19] MEDS: docusate sod 100mg capsule PO SCH ×2 (09:33→19:43)
[2017-09-19] MEDS: aspirin 81mg tablet.DR PO SCH (09:33)
[2017-09-19] MEDS: duloxetine 30mg CAPSULE.DR PO SCH (09:34)
[2017-09-19] MEDS: fenofibrate 145mg tablet PO SCH (09:34)
[2017-09-19] MEDS: lactobacillus rhamnosus 10,000 MMU CELLS/CAPSULE PO SCH ×2 (09:34→16:24)
[2017-09-19] MEDS: insulin Lispro (HumaLOG) vial - multi-dose SQ SCH ×4 (09:50→21:04)
[2017-09-19] MEDS: guaiFENesin/codeine phos 10ml UD oral syrup PO SCH ×4 (09:50→20:57)
[2017-09-19] MEDS: methylPREDNISolone sod succ 125mg/2ml vial IV SCH ×3 (09:52→23:40)
[2017-09-19 11:00] VITALS: BP 109/63
[2017-09-19] MEDS: ipratropium/albuterol 3ml nebule NEB SCH ×4 (11:36→23:13)
[2017-09-19 15:00] VITALS: BP 121/73
[2017-09-19 19:00] VITALS: BP 117/72
[2017-09-19] MEDS: prazosin 1mg capsule PO SCH (20:57)
[2017-09-19] MEDS: insulin glargine (Lantus) pen - multi-dose SQ SCH (21:02)
[2017-09-19 23:00] VITALS: BP 124/70
[2017-09-20] MEDS: ipratropium/albuterol 3ml nebule NEB SCH ×6 (02:05→23:59)
[2017-09-20 03:00] VITALS: BP 111/73
[2017-09-20 06:31] LABS: BASOPHILS # (AUTO) 0.2 X10'3 (0-0.2); BASOPHILS % (AUTO) 1.5 % (0-1); EOSINOPHILS # (AUTO) 0.1 X10'3 (0-0.9); EOSINOPHILS % (AUTO) 0.7 % (0-6); HEMATOCRIT 39.2 % (42.0-52.0); HEMOGLOBIN 13.6 g/dl (14.0-17.9); LYMPHOCYTES # (AUTO) 0.8 X10'3 (1.1-4.8); LYMPHOCYTES % (AUTO) 6.4 % (21-51); MEAN CORPUSCULAR HEMOGLOBIN 31.3 PG (27.0-31.0); MEAN CORPUSCULAR HGB CONC 34.8 % (33.0-36.5); MEAN CORPUSCULAR VOLUME 90.1 FL (78-98); MEAN PLATELET VOLUME 8.2 FL (7.4-10.4); MONOCYTES # (AUTO) 0.2 X10'3 (0-0.9); MONOCYTES % (AUTO) 1.8 % (2-12); NEUTROPHILS # (AUTO) 11.3 X10'3 (1.8-7.7); NEUTROPHILS % (AUTO) 89.6 % (42-75); PLATELET COUNT 330 X10'3 (140-440); RED BLOOD COUNT 4.35 X10'6 (4.70-6.10); RED CELL DISTRIBUTION WIDTH 12.8 % (11.5-14.5); WHITE BLOOD COUNT 12.6 X10'3 (4.5-11.0)
[2017-09-20 06:41] LABS: ALANINE AMINOTRANSFERASE 35 U/L (12-78); ALBUMIN 2.4 G/DL (3.4-5.0); ALBUMIN/GLOBULIN RATIO 0.7 (1.1-1.5); ALKALINE PHOSPHATASE 57 IU/L (46-116); ANION GAP 10 (8-16); ASPARTATE AMINO TRANSFERASE 19 U/L (10-37); BILIRUBIN,TOTAL 0.6 MG/DL (0.1-1.0); BLOOD UREA NITROGEN 22 MG/DL (7-18); BUN/CREATININE RATIO 22.9 (5.4-32.0); C-REACTIVE PROTEIN 6.06 MG/DL (0.0-0.5); CALCIUM 8.7 MG/DL (8.5-10.1); CHLORIDE 104 MMOL/L (99-107); CREATININE 0.96 MG/DL (0.60-1.10); GLUCOSE 265 MG/DL (70-104); POTASSIUM 4.1 MMOL/L (3.5-5.1); SODIUM 139 MMOL/L (135-145); TOTAL CARBON DIOXIDE 25.2 MMOL/L (24-32); eGFR 80 ML/MIN
[2017-09-20 07:00] VITALS: BP 117/76
[2017-09-20] MEDS: isosorbide mononitrate 30mg tab.SR.24H PO SCH (07:42)
[2017-09-20] MEDS: losartan 25mg tablet PO SCH (07:43)
[2017-09-20] MEDS: docusate sod 100mg capsule PO SCH ×2 (07:43→21:16)
[2017-09-20] MEDS: aspirin 81mg tablet.DR PO SCH (07:43)
[2017-09-20] MEDS: atorvastatin 20mg tablet PO SCH (07:43)
[2017-09-20] MEDS: pantoprazole 40mg Tablet.DR PO SCH (07:43)
[2017-09-20] MEDS: guaiFENesin/codeine phos 10ml UD oral syrup PO SCH ×4 (07:43→21:16)
[2017-09-20] MEDS: carVEDilol 12.5mg tablet PO SCH ×2 (07:43→21:16)
[2017-09-20] MEDS: amiodarone 200mg tablet PO SCH ×2 (07:43→21:16)
[2017-09-20] MEDS: gabapentin 100mg capsule PO SCH ×2 (07:43→21:15)
[2017-09-20] MEDS: fenofibrate 145mg tablet PO SCH (07:43)
[2017-09-20] MEDS: lactobacillus rhamnosus 10,000 MMU CELLS/CAPSULE PO SCH ×2 (07:43→16:55)
[2017-09-20] MEDS: duloxetine 30mg CAPSULE.DR PO SCH (07:43)
[2017-09-20] MEDS: methylPREDNISolone sod succ 125mg/2ml vial IV SCH (07:44)
[2017-09-20] MEDS: cefTRIAXone 1g/NS 100ml IVPB 100 ML IV SCH (07:44)
[2017-09-20] MEDS: insulin Lispro (HumaLOG) vial - multi-dose SQ SCH ×4 (08:22→21:26)
[2017-09-20 11:00] VITALS: BP 111/73
[2017-09-20 15:00] VITALS: BP 150/84
[2017-09-20] MEDS: methylPREDNISolone sod succ/PF 40mg inj. IV SCH ×2 (16:54→23:52)
[2017-09-20 19:00] VITALS: BP 122/70
[2017-09-20] MEDS: prazosin 1mg capsule PO SCH (21:15)
[2017-09-20] MEDS: insulin glargine (Lantus) pen - multi-dose SQ SCH (21:25)
[2017-09-20 23:00] VITALS: BP 90/61
[2017-09-21] VITALS (7 sets, daily range): BP systolic 100–118; BP diastolic 54–73
[2017-09-21] MEDS: ipratropium/albuterol 3ml nebule NEB SCH ×6 (03:15→22:49)
[2017-09-21 06:01] LABS: BASOPHILS % (AUTO) 0.1 % (0-1); EOSINOPHILS # (AUTO) 0.3 X10'3 (0-0.9); HEMATOCRIT 36.4 % (42.0-52.0); HEMOGLOBIN 12.9 g/dl (14.0-17.9); LYMPHOCYTES # (AUTO) 0.8 X10'3 (1.1-4.8); MEAN CORPUSCULAR HEMOGLOBIN 31.5 PG (27.0-31.0); MEAN CORPUSCULAR HGB CONC 35.4 % (33.0-36.5); MEAN CORPUSCULAR VOLUME 88.9 FL (78-98); MEAN PLATELET VOLUME 8.1 FL (7.4-10.4); MONOCYTES # (AUTO) 0.6 X10'3 (0-0.9); MONOCYTES % (AUTO) 3.6 % (2-12); NEUTROPHILS % (AUTO) 89.3 % (42-75); PLATELET COUNT 349 X10'3 (140-440); RED BLOOD COUNT 4.09 X10'6 (4.70-6.10); RED CELL DISTRIBUTION WIDTH 13.3 % (11.5-14.5); WHITE BLOOD COUNT 15.7 X10'3 (4.5-11.0)
[2017-09-21 06:30] LABS: ANION GAP 8 (8-16); BLOOD UREA NITROGEN 25 MG/DL (7-18); CHLORIDE 107 MMOL/L (99-107); CREATININE 1.02 MG/DL (0.60-1.10); GLUCOSE 207 MG/DL (70-104); POTASSIUM 4.3 MMOL/L (3.5-5.1); SODIUM 142 MMOL/L (135-145); TOTAL CARBON DIOXIDE 27.1 MMOL/L (24-32)
[2017-09-21 06:31] LABS: ALANINE AMINOTRANSFERASE 31 U/L (12-78); ALBUMIN 2.5 G/DL (3.4-5.0); ALBUMIN/GLOBULIN RATIO 0.8 (1.1-1.5); ALKALINE PHOSPHATASE 58 IU/L (46-116); ASPARTATE AMINO TRANSFERASE 17 U/L (10-37); BILIRUBIN,TOTAL 0.4 MG/DL (0.1-1.0); BUN/CREATININE RATIO 24.5 (5.4-32.0); CALCIUM 8.7 MG/DL (8.5-10.1); TOTAL PROTEIN 5.8 G/DL (6.4-8.2); eGFR 74 ML/MIN
[2017-09-21] MEDS: lactobacillus rhamnosus 10,000 MMU CELLS/CAPSULE PO SCH ×2 (07:50→16:52)
[2017-09-21] MEDS: pantoprazole 40mg Tablet.DR PO SCH (07:51)
[2017-09-21] MEDS: carVEDilol 12.5mg tablet PO SCH ×2 (07:51→20:59)
[2017-09-21] MEDS: isosorbide mononitrate 30mg tab.SR.24H PO SCH (07:51)
[2017-09-21] MEDS: losartan 25mg tablet PO SCH (07:51)
[2017-09-21] MEDS: gabapentin 100mg capsule PO SCH ×2 (07:51→21:00)
[2017-09-21] MEDS: duloxetine 30mg CAPSULE.DR PO SCH (07:51)
[2017-09-21] MEDS: amiodarone 200mg tablet PO SCH ×2 (07:51→20:59)
[2017-09-21] MEDS: aspirin 81mg tablet.DR PO SCH (07:51)
[2017-09-21] MEDS: atorvastatin 20mg tablet PO SCH (07:51)
[2017-09-21] MEDS: docusate sod 100mg capsule PO SCH ×2 (07:51→21:00)
[2017-09-21] MEDS: fenofibrate 145mg tablet PO SCH (07:51)
[2017-09-21] MEDS: methylPREDNISolone sod succ/PF 40mg inj. IV SCH ×2 (07:52→20:59)
[2017-09-21] MEDS: cefTRIAXone 1g/NS 100ml IVPB 100 ML IV SCH (07:52)
[2017-09-21] MEDS: guaiFENesin/codeine phos 10ml UD oral syrup PO SCH ×4 (07:52→21:00)
[2017-09-21] MEDS: insulin Lispro (HumaLOG) vial - multi-dose SQ SCH ×3 (09:22→18:46)
[2017-09-21] MEDS: HYDROcodone/acetaminophen 10/325mg tab PO PRN (11:24)
[2017-09-21] MEDS ORDERED: benzocaine/menthol oral lozeng 1 EACH BOX MM PRN (15:05)
[2017-09-21 15:10] LABS: ATYPICAL PANCA <1:20 titer (Neg:<1:20); CYTOPLASMIC (C-ANCA) <1:20 titer (Neg:<1:20); PERINUCLEAR (P-ANCA) <1:20 titer (Neg:<1:20)
[2017-09-21] MEDS: prazosin 1mg capsule PO SCH (20:59)
[2017-09-21] MEDS: insulin glargine (Lantus) pen - multi-dose SQ SCH (21:12)
[2017-09-22] MEDS: ipratropium/albuterol 3ml nebule NEB SCH ×6 (02:13→23:24)
[2017-09-22 03:00] VITALS: BP 109/67
[2017-09-22 06:05] LABS: HEMATOCRIT 37.3 % (42.0-52.0); HEMOGLOBIN 12.8 g/dl (14.0-17.9); MEAN CORPUSCULAR HEMOGLOBIN 31.4 PG (27.0-31.0); MEAN CORPUSCULAR HGB CONC 34.4 % (33.0-36.5); MEAN CORPUSCULAR VOLUME 91.4 FL (78-98); MEAN PLATELET VOLUME 8.6 FL (7.4-10.4); PLATELET COUNT 348 X10'3 (140-440); RED BLOOD COUNT 4.08 X10'6 (4.70-6.10); WHITE BLOOD COUNT 11.9 X10'3 (4.5-11.0)
[2017-09-22 06:10] LABS: ALANINE AMINOTRANSFERASE 31 U/L (12-78); ALBUMIN 2.5 G/DL (3.4-5.0); ALBUMIN/GLOBULIN RATIO 0.8 (1.1-1.5); ALKALINE PHOSPHATASE 55 IU/L (46-116); ANION GAP 6 (8-16); ASPARTATE AMINO TRANSFERASE 14 U/L (10-37); BILIRUBIN,TOTAL 0.5 MG/DL (0.1-1.0); BLOOD UREA NITROGEN 24 MG/DL (7-18); BUN/CREATININE RATIO 24.5 (5.4-32.0); CALCIUM 8.2 MG/DL (8.5-10.1); CHLORIDE 106 MMOL/L (99-107); CREATININE 0.98 MG/DL (0.60-1.10); GLUCOSE 192 MG/DL (70-104); MAGNESIUM 2.2 MG/DL (1.5-2.4); POTASSIUM 4.5 MMOL/L (3.5-5.1); SODIUM 140 MMOL/L (135-145); TOTAL CARBON DIOXIDE 28.4 MMOL/L (24-32); TOTAL PROTEIN 5.6 G/DL (6.4-8.2); eGFR 78 ML/MIN
[2017-09-22 06:27] LABS: LYMPHOCYTES % (MANUAL) 9 % (21-51); MONOCYTES % (MANUAL) 8 % (2-12); NEUTROPHILS % (MANUAL) 84 % (42-75); PLATELET ESTIMATE NORMAL; TOTAL CELLS COUNTED 100
[2017-09-22 07:00] VITALS: BP 115/76
[2017-09-22] MEDS: duloxetine 30mg CAPSULE.DR PO SCH (08:27)
[2017-09-22] MEDS: fenofibrate 145mg tablet PO SCH (08:27)
[2017-09-22] MEDS: amiodarone 200mg tablet PO SCH ×2 (08:27→20:25)
[2017-09-22] MEDS: atorvastatin 20mg tablet PO SCH (08:27)
[2017-09-22] MEDS: aspirin 81mg tablet.DR PO SCH (08:27)
[2017-09-22] MEDS: cefTRIAXone 1g/NS 100ml IVPB 100 ML IV SCH (08:27)
[2017-09-22] MEDS: docusate sod 100mg capsule PO SCH ×2 (08:27→20:25)
[2017-09-22] MEDS: carVEDilol 12.5mg tablet PO SCH ×2 (08:27→20:25)
[2017-09-22] MEDS: isosorbide mononitrate 30mg tab.SR.24H PO SCH (08:27)
[2017-09-22] MEDS: gabapentin 100mg capsule PO SCH ×2 (08:27→20:25)
[2017-09-22] MEDS: guaiFENesin/codeine phos 10ml UD oral syrup PO SCH ×4 (08:27→20:25)
[2017-09-22] MEDS: lactobacillus rhamnosus 10,000 MMU CELLS/CAPSULE PO SCH ×2 (08:27→17:17)
[2017-09-22] MEDS: losartan 25mg tablet PO SCH (08:31)
[2017-09-22] MEDS: pantoprazole 40mg Tablet.DR PO SCH (08:31)
[2017-09-22] MEDS: methylPREDNISolone sod succ/PF 40mg inj. IV SCH ×2 (08:31→20:25)
[2017-09-22] MEDS: insulin Lispro (HumaLOG) vial - multi-dose SQ SCH ×3 (08:40→19:01)
[2017-09-22 11:00] VITALS: BP 127/64
[2017-09-22 15:00] VITALS: BP 113/60
[2017-09-22 19:00] VITALS: BP 135/75
[2017-09-22] MEDS: prazosin 1mg capsule PO SCH (20:25)
[2017-09-22] MEDS: insulin glargine (Lantus) pen - multi-dose SQ SCH (21:17)
[2017-09-22 23:00] VITALS: BP 104/62
[2017-09-23 03:00] VITALS: BP 101/61
[2017-09-23] MEDS: ipratropium/albuterol 3ml nebule NEB SCH ×4 (03:05→14:41)
[2017-09-23 05:52] LABS: BASOPHILS # (AUTO) 0.1 X10'3 (0-0.2); EOSINOPHILS % (AUTO) 0 % (0-6); HEMATOCRIT 41.1 % (42.0-52.0); HEMOGLOBIN 14.5 g/dl (14.0-17.9); MEAN CORPUSCULAR HEMOGLOBIN 31.4 PG (27.0-31.0); MEAN CORPUSCULAR HGB CONC 35.2 % (33.0-36.5); MEAN CORPUSCULAR VOLUME 89.2 FL (78-98); MEAN PLATELET VOLUME 8.3 FL (7.4-10.4); MONOCYTES # (AUTO) 0.6 X10'3 (0-0.9); MONOCYTES % (AUTO) 5.7 % (2-12); NEUTROPHILS # (AUTO) 8.4 X10'3 (1.8-7.7); NEUTROPHILS % (AUTO) 83.3 % (42-75); PLATELET COUNT 360 X10'3 (140-440); RED BLOOD COUNT 4.61 X10'6 (4.70-6.10); RED CELL DISTRIBUTION WIDTH 12.9 % (11.5-14.5); WHITE BLOOD COUNT 10.1 X10'3 (4.5-11.0)
[2017-09-23 06:10] LABS: ANION GAP 6 (8-16); BLOOD UREA NITROGEN 21 MG/DL (7-18); CHLORIDE 105 MMOL/L (99-107); CREATININE 0.98 MG/DL (0.60-1.10); GLUCOSE 188 MG/DL (70-104); POTASSIUM 4.4 MMOL/L (3.5-5.1); SODIUM 140 MMOL/L (135-145)
[2017-09-23 06:11] LABS: ALANINE AMINOTRANSFERASE 27 U/L (12-78); ALBUMIN 2.6 G/DL (3.4-5.0); ALBUMIN/GLOBULIN RATIO 0.9 (1.1-1.5); ALKALINE PHOSPHATASE 61 IU/L (46-116); ASPARTATE AMINO TRANSFERASE 13 U/L (10-37); BILIRUBIN,TOTAL 0.4 MG/DL (0.1-1.0); BUN/CREATININE RATIO 21.4 (5.4-32.0); CALCIUM 8.1 MG/DL (8.5-10.1); TOTAL PROTEIN 5.6 G/DL (6.4-8.2); eGFR 78 ML/MIN
[2017-09-23 07:00] VITALS: BP 119/77
[2017-09-23] MEDS: lactobacillus rhamnosus 10,000 MMU CELLS/CAPSULE PO SCH ×2 (08:08→16:58)
[2017-09-23] MEDS: pantoprazole 40mg Tablet.DR PO SCH (08:09)
[2017-09-23] MEDS: losartan 25mg tablet PO SCH (08:09)
[2017-09-23] MEDS: guaiFENesin/codeine phos 10ml UD oral syrup PO SCH ×3 (08:09→16:58)
[2017-09-23] MEDS: atorvastatin 20mg tablet PO SCH (08:10)
[2017-09-23] MEDS: aspirin 81mg tablet.DR PO SCH (08:10)
[2017-09-23] MEDS: duloxetine 30mg CAPSULE.DR PO SCH (08:10)
[2017-09-23] MEDS: isosorbide mononitrate 30mg tab.SR.24H PO SCH (08:11)
[2017-09-23] MEDS: methylPREDNISolone sod succ/PF 40mg inj. IV SCH (08:11)
[2017-09-23] MEDS: amiodarone 200mg tablet PO SCH (08:11)
[2017-09-23] MEDS: docusate sod 100mg capsule PO SCH (08:11)
[2017-09-23] MEDS: gabapentin 100mg capsule PO SCH (08:12)
[2017-09-23] MEDS: fenofibrate 145mg tablet PO SCH (08:12)
[2017-09-23] MEDS: cefTRIAXone 1g/NS 100ml IVPB 100 ML IV SCH (08:29)
[2017-09-23] MEDS: carVEDilol 12.5mg tablet PO SCH (08:29)
[2017-09-23] MEDS: insulin Lispro (HumaLOG) vial - multi-dose SQ SCH ×2 (08:32→13:00)
[2017-09-23 11:00] VITALS: BP 112/74
== END 2017-09-23 17:15 | DRG 190 ==
LOC: ER 16:42 → ED HOLD 17:53 → PCU 3S 20:58
PROVIDERS: ADMIT Family Medicine; ATTEND Family Medicine
PROC: B32T1ZZ Computerized Tomography (CT Scan) of Left Pulmonary Artery using Low Osmolar Contrast (ICD-10-PCS; principal; 2017-09-14)
PROC: B3201ZZ Computerized Tomography (CT Scan) of Thoracic Aorta using Low Osmolar Contrast (ICD-10-PCS; 2017-09-14)
PROC: B32S1ZZ Computerized Tomography (CT Scan) of Right Pulmonary Artery using Low Osmolar Contrast (ICD-10-PCS; 2017-09-14)
PROC: 4A023N7 Measurement of Cardiac Sampling and Pressure, Left Heart, Percutaneous Approach (ICD-10-PCS; 2017-09-15)
PROC: B2111ZZ Fluoroscopy of Multiple Coronary Arteries using Low Osmolar Contrast (ICD-10-PCS; 2017-09-15)
PROC: B2151ZZ Fluoroscopy of Left Heart using Low Osmolar Contrast (ICD-10-PCS; 2017-09-15)
PROC: 5A09357 Assistance with Respiratory Ventilation, Less than 24 Consecutive Hours, Continuous Positive Airway Pressure (ICD-10-PCS; 2017-09-16)
PROC: 5A09357 Assistance with Respiratory Ventilation, Less than 24 Consecutive Hours, Continuous Positive Airway Pressure (ICD-10-PCS; 2017-09-17)
PROC: 5A09357 Assistance with Respiratory Ventilation, Less than 24 Consecutive Hours, Continuous Positive Airway Pressure (ICD-10-PCS; 2017-09-18)
PROC: 5A09357 Assistance with Respiratory Ventilation, Less than 24 Consecutive Hours, Continuous Positive Airway Pressure (ICD-10-PCS; 2017-09-19)
PROC: 5A09357 Assistance with Respiratory Ventilation, Less than 24 Consecutive Hours, Continuous Positive Airway Pressure (ICD-10-PCS; 2017-09-20)
PROC: 5A09357 Assistance with Respiratory Ventilation, Less than 24 Consecutive Hours, Continuous Positive Airway Pressure (ICD-10-PCS; 2017-09-21)
PROC: 5A09357 Assistance with Respiratory Ventilation, Less than 24 Consecutive Hours, Continuous Positive Airway Pressure (ICD-10-PCS; 2017-09-22)
PROC: 5A09357 Assistance with Respiratory Ventilation, Less than 24 Consecutive Hours, Continuous Positive Airway Pressure (ICD-10-PCS; 2017-09-23)
DX: I21.4 Non-ST elevation (NSTEMI) myocardial infarction (principal); J96.20 Acute and chronic respiratory failure, unspecified whether with hypoxia or hypercapnia; J18.9 Pneumonia, unspecified organism; I11.0 Hypertensive heart disease with heart failure; I25.82 Chronic total occlusion of coronary artery; E66.01 Morbid (severe) obesity due to excess calories; I50.9 Heart failure, unspecified; E11.40 Type 2 diabetes mellitus with diabetic neuropathy, unspecified; E11.65 Type 2 diabetes mellitus with hyperglycemia; J44.0 Chronic obstructive pulmonary disease with (acute) lower respiratory infection; J44.1 Chronic obstructive pulmonary disease with (acute) exacerbation; E78.00 Pure hypercholesterolemia, unspecified; M54.9 Dorsalgia, unspecified; E78.5 Hyperlipidemia, unspecified; F12.90 Cannabis use, unspecified, uncomplicated; G47.33 Obstructive sleep apnea (adult) (pediatric); G89.29 Other chronic pain; I25.10 Atherosclerotic heart disease of native coronary artery without angina pectoris; R04.2 Hemoptysis; I34.0 Nonrheumatic mitral (valve) insufficiency; I48.91 Unspecified atrial fibrillation; K31.9 Disease of stomach and duodenum, unspecified; Z79.01 Long term (current) use of anticoagulants; Z79.899 Other long term (current) drug therapy; Z88.2 Allergy status to sulfonamides; Z88.1 Allergy status to other antibiotic agents; Z88.8 Allergy status to other drugs, medicaments and biological substances; I25.2 Old myocardial infarction; Z82.0 Family history of epilepsy and other diseases of the nervous system; Z87.891 Personal history of nicotine dependence; Z95.5 Presence of coronary angioplasty implant and graft; Z68.37 Body mass index [BMI] 37.0-37.9, adult; Z56.0 Unemployment, unspecified; Z79.4 Long term (current) use of insulin; Z79.84 Long term (current) use of oral hypoglycemic drugs; Z90.49 Acquired absence of other specified parts of digestive tract
CPT/HCPCS: 36415; 36600; 71045; 71275; 74174; 80053; 80061; 81001; 82803; 82948; 83036; 83520; 83735; 83880; 84484; 85018; 85025; 85347; 85610; 85651; 85730; 86038; 86140; 86256; 86430; 87040; 87070; 93005; 93306; 93458; 94640; 94660; 94667; 94668; 94760; 97110; 97116; 97162; 99152; 99153; 99291; A4620; A6257; A6258; A6449; C1725; C1760; C1769; J0282; J0696; J0780; J1644; J1815; J1940; J2001; J2060; J2250; J2270; J2920; J2930; J3010; J3246; J3490; J7030; Q9967

== ENCOUNTER 2019-12-30 23:10 | Emergency (ER) | payer MEDICAID ==
[~2019-12-30] VITALS: Ht 182.9 cm; Wt 121.8 kg
[~2019-12-30 23:10] MED LIST changes: -ATOR10TA87 PO; +ATOR40TA PO; +CARV-50; +CARV-50 PO; -CHOL10002 PO; +DULO-31 PO; -EFF25T PO; +FURO-150 PO; +GABA-530 PO; +LEVO750T21 PO; +METF-438 PO; -METF10002 PO; -METO25TA6 PO; -OMEG1CAP2 PO; +POTA10TA19 PO; -POTA99TA25 PO; +PRAZ5CAP PO; -SAXA5TAB PO; -TICA90TA PO; -TRIA1TAB5 PO; -VITA150T PO
[2019-12-30] MEDS ORDERED: CefTRIAXone 2gm/D5W 50ml 50 ML IV ONE (23:50)
[2019-12-30] MEDS ORDERED: normal saline 1000ml 1,000 ML IV ONE (23:50)
--- NOTE | 2019-12-31 00:23 | NUR ---
pharmacy called for abx will b bring it to us shortly
[2019-12-31] MEDS ORDERED: HYDR-3965 PO (00:34)
[2019-12-31] MEDS ORDERED: LEVO500T89 PO (00:34)
[2019-12-31] MEDS ORDERED: HYDROcodone/acetaminophen 5mg/325mg tablet PO ONE (02:30)
[2019-12-31 02:36] VITALS: BP 151/85
== END 2019-12-31 02:37 | disposition home or self-care (01) ==
LOC: ER 23:10
DX: N45.1 Epididymitis (principal); N50.812 Left testicular pain; I25.10 Atherosclerotic heart disease of native coronary artery without angina pectoris; I50.9 Heart failure, unspecified; E78.00 Pure hypercholesterolemia, unspecified; I11.0 Hypertensive heart disease with heart failure; J44.9 Chronic obstructive pulmonary disease, unspecified; E11.9 Type 2 diabetes mellitus without complications; Z98.61 Coronary angioplasty status; Z56.0 Unemployment, unspecified; Z98.890 Other specified postprocedural states
CPT/HCPCS: 76870; 96365; 99284; J0696; J7030